=== PATIENT | female | born 1985 | race Caucasian/White ===

== ENCOUNTER 2017-05-27 21:40 | Emergency (ER) | payer OTHER ==
[~2017-05-27] VITALS: Ht 175.3 cm; Wt 68.0 kg
[~2017-05-27 21:40] MED LIST: ACET325 PO; IBUP800 PO; Macrodantin100 MG PO; NICO21TP UD; Verotin-Gr Cap1 EACH PO
[2017-10-11] MEDS ORDERED: DOCU100 PO (13:16)
[2017-10-11] MEDS ORDERED: IBUP800 PO (13:17)
[2017-10-11] MEDS ORDERED: PROM25 PO (13:18)
[2017-10-11] MEDS ORDERED: Milk Of Ma400 MG/5 M PO (13:18)
[2017-10-11] MEDS ORDERED: SIME80CH PO (13:18)
== END 2017-05-27 23:19 | disposition home or self-care (01) ==
LOC: ER 21:40
DX: J02.9 Acute pharyngitis, unspecified (principal); R51 Headache; F17.200 Nicotine dependence, unspecified, uncomplicated
CPT/HCPCS: 87081; 87430; 96372; 99283; J0780; J1100; J1200; J1885

== ENCOUNTER 2017-07-17 16:59 | Emergency (ER) | payer OTHER ==
[~2017-07-17] VITALS: Ht 175.3 cm; Wt 72.6 kg
[2017-07-17 17:37] LABS: Source, Urine Clean Catch
[2017-07-17 17:42] LABS: Bilirubin, Urine Neg (Neg); Blood, Urine 5+ (Neg); Glucose Qualitative, Urine Neg (Neg); Ketones, Urine Neg (Neg); Leukocyte Esterase, Urine 3+ (Neg); Nitrite, Urine Neg (Neg); Protein, Urine 2+ (Neg); Urobilinogen, Urine NORM (Normal)
[2017-07-17 17:53] LABS: Appearance, Urine Hazy (Clear); Color, Urine Yellow (P-Yellow)
[2017-07-17 17:56] LABS: Bacteria Few /hpf; Red Blood Cells, Urine 25-50 /hpf (0-2); Squamous Epithelial Cells Few /hpf (Few); White Blood Cells, Urine 50-100 /hpf (0-5)
[2017-07-17] MEDS ORDERED: Keflex500 MG PO (18:01)
[2017-10-11] MEDS ORDERED: DOCU100 PO (13:16)
[2017-10-11] MEDS ORDERED: IBUP800 PO (13:17)
[2017-10-11] MEDS ORDERED: PROM25 PO (13:18)
[2017-10-11] MEDS ORDERED: Milk Of Ma400 MG/5 M PO (13:18)
[2017-10-11] MEDS ORDERED: SIME80CH PO (13:18)
== END 2017-07-17 18:10 | disposition home or self-care (01) ==
LOC: ER 16:59
PROVIDERS: Emergency Medicine
DX: S63.641A Sprain of metacarpophalangeal joint of right thumb, initial encounter (principal); N39.0 Urinary tract infection, site not specified; F17.210 Nicotine dependence, cigarettes, uncomplicated; X58.XXXA Exposure to other specified factors, initial encounter
CPT/HCPCS: 29130; 73140; 81001; 81025; 87077; 87086; 87186; 99283

== ENCOUNTER 2017-07-23 15:38 | Emergency (ER) | payer OTHER ==
[~2017-07-23] VITALS: Ht 165.1 cm; Wt 155.0 kg
[~2017-07-23 15:38] MED LIST changes: +Keflex500 MG PO
[2017-10-11] MEDS ORDERED: DOCU100 PO (13:16)
[2017-10-11] MEDS ORDERED: IBUP800 PO (13:17)
[2017-10-11] MEDS ORDERED: PROM25 PO (13:18)
[2017-10-11] MEDS ORDERED: SIME80CH PO (13:18)
[2017-10-11] MEDS ORDERED: Milk Of Ma400 MG/5 M PO (13:18)
== END 2017-07-23 16:39 | disposition home or self-care (01) ==
LOC: ER 15:38
DX: S00.33XA Contusion of nose, initial encounter (principal); F17.210 Nicotine dependence, cigarettes, uncomplicated; Z79.2 Long term (current) use of antibiotics; Z98.890 Other specified postprocedural states; Y04.0XXA Assault by unarmed brawl or fight, initial encounter
CPT/HCPCS: 99282

== ENCOUNTER 2018-05-04 22:24 | Emergency (ER) | payer OTHER ==
[~2018-05-04] VITALS: Ht 175.3 cm; Wt 81.7 kg
[~2018-05-04 22:24] MED LIST changes: +DOCU100 PO; +Milk Of Ma400 MG/5 M PO; +PROM25 PO; +SIME80CH PO
[2018-05-05 00:24] LABS: Source, Urine Clean Catch
[2018-05-05 00:28] LABS: Bilirubin, Urine Neg (Neg); Blood, Urine 1+ (Neg); Glucose Qualitative, Urine Neg (Neg); Ketones, Urine Neg (Neg); Leukocyte Esterase, Urine 3+ (Neg); Nitrite, Urine Neg (Neg); Protein, Urine 1+ (Neg); Urobilinogen, Urine 1+ (Normal)
[2018-05-05 00:30] LABS: Appearance, Urine Clear (Clear); Color, Urine Yellow (P-Yellow)
[2018-05-05 00:33] LABS: White Blood Cells, Urine 50-100 /hpf (0-5)
[2018-05-05 00:34] LABS: Bacteria Many /hpf; Red Blood Cells, Urine 0-2 /hpf (0-2); Squamous Epithelial Cells Mod /hpf (Few)
[2018-05-05 00:56] LABS: Bilirubin, Urine Neg (Neg); Blood, Urine 2+ (Neg); Glucose Qualitative, Urine Neg (Neg); Ketones, Urine Neg (Neg); Leukocyte Esterase, Urine 2+ (Neg); Nitrite, Urine Neg (Neg); Protein, Urine Neg (Neg); Source, Urine Catheter; Specific Gravity, Urine 1.015 (1.003-1.022); Urobilinogen, Urine NORM (Normal)
[2018-05-05 01:00] LABS: Appearance, Urine Clear (Clear); Color, Urine Yellow (P-Yellow)
[2018-05-05 01:01] LABS: Bacteria Mod /hpf; Squamous Epithelial Cells Rare /hpf (Few); White Blood Cells, Urine 25-50 /hpf (0-5)
[2018-05-05] MEDS ORDERED: CEPH500 PO (01:06)
== END 2018-05-05 01:24 | disposition home or self-care (01) ==
LOC: ER 22:24
PROVIDERS: Physician Assistant
DX: N39.0 Urinary tract infection, site not specified (principal); M77.51 Other enthesopathy of right foot and ankle; F17.210 Nicotine dependence, cigarettes, uncomplicated; Z98.1 Arthrodesis status
CPT/HCPCS: 81001; 87077; 87086; 87186; 99283; P9612